=== PATIENT | male | born 1975 | race Caucasian/White ===

== ENCOUNTER 2024-08-16 14:03 | Inpatient (IN) | payer OTHER, SELFPAY ==
[2024-08-16] VITALS (13 sets, daily range): BP systolic 101–134; BP diastolic 56–81; PULSE 70–112; RESP 10–20; TEMP 35.8–38.8; O2SAT 93–98; BMI 26.6
--- NOTE | 2024-08-16 14:59 | DI.RAD.S_ITS ---
PROCEDURE: XR CHEST 1V INDICATIONS: suspected sepsis TECHNIQUE: One view of the chest was acquired. COMPARISON: None. FINDINGS: Surgical changes and devices: None. Lungs and pleura: Lungs are clear. No pleural effusions or pneumothorax. Mediastinum: Mediastinal contours appear normal. Heart size is normal. Bones and chest wall: No suspicious bony lesions. Overlying soft tissues appear unremarkable. IMPRESSION: No acute cardiopulmonary abnormality is seen. Dictated by: Vel Narayan M.D. on 08/16/2024 at 16:05 Approved by: Vel Narayan M.D. on 08/16/2024 at 16:06
--- NOTE | 2024-08-16 14:59 | EKG_ITS ---
[id number], [place] [address] Test Date: 2024-08-16 Pat Name: John Paul Baron Department: Room: Gender: Male [employer] General Manager: PORSHA : 1975 Requested By: Order Number: [id number] Reading MD: Young Miller MD Measurements Intervals [place] Rate: 80 P: 71 TX: 126 QRS: 21 QRSD: 90 T: 43 QT: 380 QTc: 438 Interpretive Statements Normal sinus rhythm with sinus arrhythmia Electronically Signed On 08-17-2024 8:45:37 PDT by Young Miller MD
--- NOTE | 2024-08-16 16:10 | PC.NURSE ---
Pt has redness to bilateral LE. Left lower leg is more red and edematous than the right.
[2024-08-16 16:14] LABS: INR 1.1 (0.9-1.3); Prothrombin Time 12.8 SECONDS (9.4-12.5)
[2024-08-16 16:17] LABS: PTT Partial Thromboplastin Tim 17 SECONDS (25.1-36.5)
[2024-08-16 16:21] LABS: Alanine Aminotransferase 20 IU/L (<50); Albumin 4.1 g/dL (3.5-5.0); Albumin Globulin Ratio 0.8 (1.0-2.8); Alkaline Phosphatase 103 U/L (38-126); Aspartate Aminotransferase 27 IU/L (17-59); BUN Creatinine Ratio 24.2 (6-22); Bilirubin Total 0.7 mg/dL (0.2-1.3); Blood Urea Nitrogen 29 mg/dL (9-20); Calcium 9.2 mg/dL (8.4-10.2); Carbon Dioxide 28 mmol/L (22-32); Chloride 94 mmol/L (98-107); Estimated Glomerular Filt Rate > 60 mL/min (>60); Glucose 103 mg/dL (70-99); HEMOLYSIS < 15 (0-50); Lactate (Lactic Acid) 1.8 mmol/L (0.7-2.1); Lipase 40 U/L (23-300); Potassium 3.2 mmol/L (3.4-5.1); Sodium 135 mmol/L (137-145); Total Protein 9.1 g/dL (6.3-8.2)
--- NOTE | 2024-08-16 16:21 | DI.US.S_ITS ---
PROCEDURE: US PERIPH VENOUS LOW EXTREM LT INDICATIONS: Left leg redness and swelling TECHNIQUE: Real-time imaging, as well as color and pulse Doppler interrogation, were performed of the lower extremity deep veins from the inguinal ligament to the popliteal fossa, with documentation of the visualized calf veins. COMPARISON: None. FINDINGS: The common femoral, femoral, popliteal, and the visualized calf veins are normally compressible, and free of intraluminal thrombus. Color and pulse Doppler demonstrate normal phasic intraluminal flow. There is normal augmentation response to distal compression maneuver. IMPRESSION: No findings of lower extremity deep venous thrombosis. Dictated by: Librado Rodriguez M.D. on 08/16/2024 at 16:48 Approved by: Librado Rodriguez M.D. on 08/16/2024 at 16:48
--- NOTE | 2024-08-16 16:23 | ED.SKABFB ---
HPI - Skin/Abscess/Foreign Bdy General Chief complaint: Skin/Abscess/Foreign Body Stated complaint: staph infection in Lt leg- pain Time Seen by Provider: 08/16/24 15:29 Source: patient Mode of arrival: Ambulatory Limitations: no limitations History of Present Illness HPI narrative: Patient here for left leg pain redness and swelling. Ongoing 5 days. History of cellulitis in the past. No history of blood clots in legs or lungs. Vital signs noted. Patient denies any injury she had of the skin. No chest pain or shortness of breath. Related Data Home Medications ?Medication ?Instructions ?Recorded ?Confirmed methadone 60 mg PO DAILY pain 08/16/24 08/17/24 Allergies Allergy/AdvReac Type Severity Reaction Status Date / Time No Known Drug Allergies Allergy Verified 08/16/24 14:54 Review of Systems Review of Systems Narrative: GENERAL: Negative chills, fatigue, malaise, fever, sweats. HEENT: Negative sinus pain, ear pain, sore throat RESPIRATORY: Negative dyspnea, cough CARDIOVASCULAR: Negative chest pain, palpitations GASTROINTESTINAL: Negative vomiting, nausea, abdominal pain : Negative dysuria, frequency, hematuria MUSCULOSKELETAL: Negative muscle or bony pain SKIN: Negative rash, skin lesions NEUROLOGIC: Negative weakness, numbness ROS Unobtainable: All systems reviewed & are unremarkable except as noted in HPI and below Patient History Social History household members: friend(s) Smoking Status: Current every day smoker Smoking Status: Current every day smoker Exam Narrative Exam Narrative: GENERAL: in no distress, not toxic not dyspneic HEAD: Normocephalic. EYES: Pupils equal round ENT: Mucous membranes moist. NECK: Trachea midline. CARDIOVASCULAR: Regular rate and rhythm RESPIRATORY: Clear to auscultation. Breath sounds equal bilaterally. No wheezes, rales, or rhonchi. GASTROINTESTINAL: Abdomen soft, non-tender EXTREMITIES: No gross deformities. Examination left lower extremity. Large left calf compared to the right. No crepitus. No pain out of portion exam. No signs of a compartment syndrome. Strong pedal pulse on the left brisk cap refills light touch intact to leg and toes. No red streaking. No palpable cords. Negative Homans test negative Ortiz test. Diffuse erythema circumferentially of the lower leg between the ankle and. Knee. BACK: No flank tenderness. NEURO: AOx4. Clear speech SKIN: Warm and dry PSYCH: Not anxious, is cooperative Initial Vital Signs Initial Vital Signs: Vital Signs Temperature 101.8 F H 08/16/24 14:53 Pulse Rate 112 H 08/16/24 14:53 Respiratory Rate 20 08/16/24 14:53 Blood Pressure 109/73 08/16/24 14:53 Pulse Oximetry 97 08/16/24 14:53 Oxygen Delivery Method Room Air 08/16/24 14:53 Course Orders Ordered: Discontinued Medications Acetaminophen (Acetaminophen 325 Mg Tablet) 650 mg PO Q6H PRN PRN Reason: Fever/Mild Pain (1-3) Docusate Sodium (Docusate 100 Mg Capsule) 100 mg PO BID [facility] Last Admin: 08/22/24 08:30 Dose: Not Given Documented By: Admin: 08/21/24 21:46 Dose: Not Given Documented By: Admin: 08/21/24 08:55 Dose: Not Given Documented By: Admin: 08/20/24 20:55 Dose: Not Given Documented By: Admin: 08/20/24 09:31 Dose: Not Given Documented By: Admin: 08/19/24 20:11 Dose: Not Given Documented By: Admin: 08/19/24 10:00 Dose: Not Given Documented By: Admin: 08/18/24 21:19 Dose: Not Given Documented By: Admin: 08/18/24 09:36 Dose: Not Given Documented By: Admin: 08/17/24 21:27 Dose: Not Given Documented By: Admin: 08/17/24 08:00 Dose: Not Given Documented By: Admin: 08/16/24 21:01 Dose: Not Given Documented By: TLS Furosemide (Furosemide 40 Mg/4 Ml Vial) 40 mg IV NOW ONE Stop: 08/19/24 08:55 Last Admin: 08/19/24 10:40 Dose: 40 mg Documented By: LIZZY Heparin Sodium (Porcine) (Heparin 5,000 Unit/Ml Vial) 5,000 unit SUBCUT BID [facility] Last Admin: 08/22/24 08:42 Dose: 5,000 unit Documented By: Admin: 08/21/24 20:20 Dose: 5,000 unit Documented By: Admin: 08/21/24 08:50 Dose: 5,000 unit Documented By: Admin: 08/20/24 20:51 Dose: 5,000 unit Documented By: Admin: 08/20/24 09:31 Dose: 5,000 unit Documented By: Admin: 08/19/24 20:11 Dose: 5,000 unit Documented By: Admin: 08/19/24 10:00 Dose: 5,000 unit Documented By: Admin: 08/18/24 21:19 Dose: 5,000 unit Documented By: Admin: 08/18/24 09:35 Dose: 5,000 unit Documented By: Admin: 08/17/24 21:27 Dose: 5,000 unit Documented By: Admin: 08/17/24 07:59 Dose: 5,000 unit Documented By: Admin: 08/16/24 21:01 Dose: 5,000 unit Documented By: PRATIBHA Heparin Sodium (Porcine) (Heparin Flush (Cl/Picc/Mid-Line) 50 Unit/5 Ml Syringe) 50 unit IV BID [facility] Last Admin: 08/22/24 08:42 Dose: 50 unit Documented By: Admin: 08/21/24 21:53 Dose: Not Given Documented By: Admin: 08/21/24 08:50 Dose: 50 unit Documented By: Admin: 08/20/24 23:47 Dose: 50 unit Documented By: VERONICA Heparin Sodium (Porcine) (Heparin Flush (Cl/Picc/Mid-Line) 50 Unit/5 Ml Syringe) 50 unit IV PRN PRN PRN Reason: Flush Hydromorphone HCl (Hydromorphone 2 Mg Tablet) 4 mg PO Q4HR PRN PRN Reason: Pain, Severe (7-10) Sodium Chloride (Normal Saline 0.9%) 1,000 mls @ 1,000 mls/hr IV BOLUS ONE Stop: 08/16/24 15:58 Last Infusion: 08/16/24 17:52 Dose: Infused Documented By: Admin: 08/16/24 16:39 Dose: 1,000 mls/hr Documented By: JOSUÉ Doxycycline Hyclate 100 mg/ (Sodium Chloride) 100 mls @ 100 mls/hr IV NOW ONE Stop: 08/16/24 16:22 Last Infusion: 08/16/24 17:52 Dose: Infused Documented By: Admin: 08/16/24 16:38 Dose: 100 mls/hr Documented By: SB Ceftriaxone Sodium 2,000 mg/ (Sodium Chloride) 100 mls @ 200 mls/hr IV NOW ONE Stop: 08/16/24 17:57 Last Infusion: 08/16/24 19:13 Dose: Infused Documented By: Admin: 08/16/24 18:19 Dose: 200 mls/hr Documented By: JR Vancomycin HCl (Vancomycin) 1,250 mg in 250 mls @ 250 mls/hr IV Q12H [facility] Last Infusion: 08/18/24 09:35 Dose: Infused Documented By: Admin: 08/18/24 08:08 Dose: 250 mls/hr Documented By: Infusion: 08/17/24 19:30 Dose: Infused Documented By: Admin: 08/17/24 18:30 Dose: 250 mls/hr Documented By: Infusion: 08/17/24 09:22 Dose: Infused Documented By: Admin: 08/17/24 07:59 Dose: 250 mls/hr Documented By: BT Vancomycin HCl/Dextrose (Vancomycin) 2,000 mg in 400 mls @ 200 mls/hr IV NOW ONE Stop: 08/16/24 20:59 Last Infusion: 08/16/24 23:10 Dose: Infused Documented By: Admin: 08/16/24 21:02 Dose: 200 mls/hr Documented By: PRATIBHA Vancomycin HCl (Vancomycin) 1,250 mg in 250 mls @ 250 mls/hr IV Q8H [facility] Last Infusion: 08/19/24 19:00 Dose: Infused Documented By: Admin: 08/19/24 07:00 Dose: Not Given Documented By: Infusion: 08/18/24 22:00 Dose: 0 mls/hr Documented By: Admin: 08/18/24 21:55 Dose: 250 mls/hr Documented By: Infusion: 08/18/24 16:15 Dose: Infused Documented By: Admin: 08/18/24 14:28 Dose: 250 mls/hr Documented By: LIZZY Vancomycin HCl (Vancomycin) 1,250 mg in 250 mls @ 250 mls/hr IV Q8H [facility] Last Infusion: 08/22/24 13:17 Dose: Infused Documented By: Admin: 08/22/24 11:41 Dose: 250 mls/hr Documented By: Infusion: 08/22/24 05:46 Dose: Infused Documented By: Admin: 08/22/24 03:14 Dose: 250 mls/hr Documented By: Infusion: 08/22/24 03:14 Dose: Infused Documented By: Admin: 08/21/24 20:07 Dose: 250 mls/hr Documented By: Infusion: 08/21/24 13:44 Dose: Infused Documented By: Admin: 08/21/24 12:19 Dose: 250 mls/hr Documented By: Infusion: 08/21/24 03:57 Dose: Infused Documented By: Admin: 08/21/24 02:46 Dose: 250 mls/hr Documented By: Infusion: 08/20/24 20:08 Dose: Infused Documented By: Admin: 08/20/24 18:52 Dose: 250 mls/hr Documented By: Infusion: 08/20/24 12:50 Dose: Infused Documented By: Admin: 08/20/24 11:14 Dose: 250 mls/hr Documented By: Infusion: 08/20/24 03:56 Dose: Infused Documented By: Admin: 08/20/24 02:55 Dose: 250 mls/hr Documented By: Infusion: 08/19/24 21:00 Dose: Infused Documented By: Admin: 08/19/24 20:00 Dose: 250 mls/hr Documented By: Infusion: 08/19/24 13:00 Dose: Infused Documented By: Admin: 08/19/24 10:46 Dose: 250 mls/hr Documented By: EJ Ceftriaxone Sodium 2,000 mg/ (Sodium Chloride) 100 mls @ 200 mls/hr IV Q24H [facility] Ceftriaxone Sodium 2,000 mg/ (Sodium Chloride) 100 mls @ 200 mls/hr IV Q24H [facility] Last Infusion: 08/22/24 15:00 Dose: Infused Documented By: Admin: 08/22/24 14:07 Dose: 200 mls/hr Documented By: Infusion: 08/21/24 14:53 Dose: Infused Documented By: Admin: 08/21/24 13:50 Dose: 200 mls/hr Documented By: Infusion: 08/20/24 13:35 Dose: Infused Documented By: Admin: 08/20/24 13:02 Dose: 200 mls/hr Documented By: AURELIA Ibuprofen (Ibuprofen 400 Mg Tablet) 800 mg PO NOW ONE Stop: 08/16/24 16:24 Last Admin: 08/16/24 16:38 Dose: 800 mg Documented By: SB Magnesium Hydroxide (Magnesium Hydroxide 30 Ml Udc) 30 ml PO DAILY PRN PRN Reason: Constipation Methadone HCl (Methadone Intensol 10 Mg/Ml Oral.Conc) 60 mg PO DAILY [facility] Last Admin: 08/18/24 09:00 Dose: Not Given Documented By: Admin: 08/17/24 09:48 Dose: 60 mg Documented By: RYLAN Methadone HCl (Methadone Intensol 10 Mg/Ml Oral.Conc) 70 mg PO DAILY [facility] Last Admin: 08/19/24 10:20 Dose: 70 mg Documented By: Admin: 08/18/24 09:30 Dose: 70 mg Documented By: LIZZY Methadone HCl (Methadone Intensol 10 Mg/Ml Oral.Conc) 80 mg PO DAILY [facility] Last Admin: 08/20/24 09:49 Dose: 80 mg Documented By: AURELIA Methadone HCl (Methadone Intensol 10 Mg/Ml Oral.Conc) 90 mg PO DAILY [facility] Last Admin: 08/22/24 11:41 Dose: 90 mg Documented By: Admin: 08/21/24 09:19 Dose: 80 mg Documented By: LDV Methadone HCl (Methadone Intensol 10 Mg/Ml Oral.Conc) 10 mg PO NOW ONE Stop: 08/21/24 16:01 Last Admin: 08/21/24 15:48 Dose: 10 mg Documented By: LDV Naloxone HCl (Naloxone 0.4 Mg/Ml Vial) 0.2 mg IV Q2MIN PRN PRN Reason: Opiate Reversal Ondansetron HCl (Ondansetron 4 Mg/2 Ml Inj) 4 mg IV NOW PRN PRN Reason: Nausea And Vomiting Ondansetron HCl (Ondansetron 4 Mg Odt) 4 mg PO NOW PRN PRN Reason: Nausea And Vomiting Oxycodone HCl (Oxycodone Ir 5 Mg Tablet) 5 mg PO Q3H PRN PRN Reason: Pain, Moderate (4-6) Potassium Chloride (Potassium Chloride 20 Meq Tab) 40 meq PO NOW ONE Stop: 08/17/24 07:31 Last Admin: 08/17/24 07:59 Dose: 40 meq Documented By: BT Sennosides (Sennosides 8.6 Mg Tablet) 17.2 mg PO BEDTIME [facility] Last Admin: 08/21/24 21:46 Dose: Not Given Documented By: Admin: 08/20/24 20:56 Dose: Not Given Documented By: Admin: 08/19/24 20:11 Dose: Not Given Documented By: Admin: 08/18/24 21:32 Dose: Not Given Documented By: Admin: 08/17/24 21:27 Dose: Not Given Documented By: Admin: 08/16/24 21:01 Dose: Not Given Documented By: TLS Sodium Chloride (Sodium Chloride 0.9% Flush) 10 ml IV BID [facility] Last Admin: 08/22/24 08:42 Dose: 10 ml Documented By: Admin: 08/21/24 20:20 Dose: 10 ml Documented By: Admin: 08/21/24 08:51 Dose: 10 ml Documented By: Admin: 08/20/24 20:51 Dose: 10 ml Documented By: Admin: 08/20/24 09:31 Dose: 10 ml Documented By: Admin: 08/19/24 20:12 Dose: 10 ml Documented By: Admin: 08/19/24 10:46 Dose: 10 ml Documented By: Admin: 08/18/24 21:19 Dose: 10 ml Documented By: Admin: 08/18/24 09:35 Dose: 10 ml Documented By: LIZZY Vancomycin HCl (Vancomycin Per Pharmacy) 1 request MIS NOW PRN PRN Reason: Cellulitis Vancomycin HCl (Vancomycin Trough) 1 request [facility] [place] [facility] Stop: 08/18/24 06:31 Last Admin: 08/18/24 07:30 Dose: 1 request Documented By: LIZZY Vancomycin HCl (Vancomycin Trough) 1 request MIS 1030 [facility] Stop: 08/19/24 13:31 Vancomycin HCl (Vancomycin Trough) 1 request [facility] [place] [facility] Stop: 08/20/24 10:31 Last Admin: 08/20/24 11:15 Dose: 1 request Documented By: AURELIA Vancomycin HCl (Vancomycin Trough) 1 request MISC NOW ONE Stop: 08/22/24 10:31 Last Admin: 08/22/24 11:40 Dose: Not Given Documented By: LDV Vital Signs Vital signs: Vital Signs - 8 hr 08/16/24 14:53 08/16/24 15:03 08/16/24 15:30 Temperature 101.8 F H Pulse Rate 112 H 97 H 82 Respiratory Rate 20 13 Blood Pressure 109/73 134/81 112/77 Pulse Oximetry 97 98 98 Oxygen Delivery Method Room Air 08/16/24 16:00 08/16/24 16:30 Temperature Pulse Rate 79 79 Respiratory Rate 13 16 Blood Pressure 104/78 108/71 Pulse Oximetry 97 97 Oxygen Delivery Method Room Air MDM - Skin/Abscess/Foreign Bdy Lab Data 08/20/24 05:18 08/20/24 05:18 Labs: Lab Results 08/16/24 08/16/24 Range/Units 15:50 16:15 WBC 10.8 (4.5-11.0) X10^3/uL RBC 4.67 (4.5-5.9) X10^6/uL Hgb 13.0 L (13.5-17.5) g/dL Hct 38.5 L (41-53) % MCV 82.4 (80-100) fL MCH 27.9 (26-34) PG MCHC 33.9 (30-36) % RDW 14.9 H (11.6-14.8) % Plt Count 233 (150-400) X10^3/uL Neut % (Auto) 80.7 H (50-75) % Lymph % (Auto) 9.0 L (25-40) % Cache % (Auto) 9.0 (3-14) % Eos % (Auto) 0.6 L (2-4) % Baso % (Auto) 0.7 (0-2) % Neut # (Auto) 8700 H (0070-7751) /uL Lymph # (Auto) 1000 L (2589-7860) /uL Cache # (Auto) 1000 H (0-900) /uL Eos # (Auto) 100 (0-450) /uL Baso # (Auto) 100 (0-100) /uL PT 12.8 H (9.4-12.5) SECONDS INR 1.1 (0.9-1.3) APTT 17 L (25.1-36.5) SECONDS Sodium 135 L (137-145) mmol/L Potassium 3.2 L (3.4-5.1) mmol/L Chloride 94 L (98-107) mmol/L Carbon Dioxide 28 (22-32) mmol/L BUN 29 H (9-20) mg/dL Creatinine 1.20 (0.66-1.25) mg/dL Estimated GFR > 60 (>60) mL/min BUN/Creatinine Ratio 24.2 H (6-22) Glucose 103 H (70-99) mg/dL Lactate 1.8 (0.7-2.1) mmol/L Calcium 9.2 (8.4-10.2) mg/dL Total Bilirubin 0.7 (0.2-1.3) mg/dL AST 27 (17-59) IU/L ALT 20 (<50) IU/L Alkaline Phosphatase 103 (38-126) U/L Total Protein 9.1 H (6.3-8.2) g/dL Albumin 4.1 (3.5-5.0) g/dL Globulin 5.0 H (1.7-4.1) g/dL Albumin/Globulin Ratio 0.8 L (1.0-2.8) Lipase 40 (23-300) U/L Procalcitonin 0.144 (<0.5) ng/mL Imaging Data Chest x-ray: Radiologist's Impression: [place] [address] XRay Report Signed Patient: John Paul Baron MR#: [id number] : 1975 Acct:[id number] Age/Sex: 49 / M Date of Service: 08/16/24 Loc: ED Accession Number: [id number] Procedure: XR chest 1V Ordering Provider: Jean Paul Malave MD PROCEDURE: XR CHEST 1V INDICATIONS: suspected sepsis TECHNIQUE: One view of the chest was acquired. COMPARISON: None. FINDINGS: Surgical changes and devices: None. Lungs and pleura: Lungs are clear. No pleural effusions or pneumothorax. Mediastinum: Mediastinal contours appear normal. Heart size is normal. Bones and chest wall: No suspicious bony lesions. Overlying soft tissues appear unremarkable. IMPRESSION: No acute cardiopulmonary abnormality is seen. Dictated by: Vel Narayan M.D. on 08/16/2024 at 16:05 Approved by: Vel Narayan M.D. on 08/16/2024 at 16:06 US - DVT: Radiologist's Impression: [address] [address] Ultrasound Report Signed Patient: John Paul Baron MR#: [id number] : 1975 Acct:[id number] Age/Sex: 49 / M Date of Service: 08/16/24 Loc: ED Accession Number: [id number] Procedure: US perip venous low extrem lt Ordering Provider: Jean Paul Malave MD PROCEDURE: US PERIP VENOUS LOW EXTREM LT INDICATIONS: Left leg redness and swelling TECHNIQUE: Real-time imaging, as well as color and pulse Doppler interrogation, were performed of the lower extremity deep veins from the inguinal ligament to the popliteal fossa, with documentation of the visualized calf veins. COMPARISON: None. FINDINGS: The common femoral, femoral, popliteal, and the visualized calf veins are normally compressible, and free of intraluminal thrombus. Color and pulse Doppler demonstrate normal phasic intraluminal flow. There is normal augmentation response to distal compression maneuver. IMPRESSION: No findings of lower extremity deep venous thrombosis. Dictated by: Librado Rodriguez M.D. on 08/16/2024 at 16:48 Approved by: Librado Rodriguez M.D. on 08/16/2024 at 16:[address] [facility] Narrative Medical decision making narrative: Patient here for left leg pain redness and swelling. Ongoing 5 days. History of cellulitis in the past. No history of blood clots in legs or lungs. Vital signs noted. Patient denies any injury she had of the skin. No chest pain or shortness of breath. After history and exam, CBC CMP procalcitonin lactic acid blood culture doxycycline normal saline ibuprofen ultrasound left leg, admit [facility] Medical records reviewed: No recent visit for this complaint Differential considered: Includes but not limited to cellulitis sepsis Lab Test results independently reviewed as above. Pertinent findings: INR 1.1 sodium 135 potassium 3.2 BUN 29 glucose 103 creatinine 1.2, WBC 10.8 hemoglobin 13.0 lactic acid 1.8 procalcitonin 0.144 Independently reviewed EKG sinus rhythm rate [address] elevation or depression normal EKG Imaging studies independently reviewed: Chest x-ray no acute finding ultrasound left leg no acute finding Consultations: Spoke with hospitalist, dr laurent, he will admit patient Re-evaluations: Updated patient results. Agrees for admission. Will need IV antibiotics. Pain is controlled. Discussion: Appropriate for admission. Patient will require IV antibiotics. Significant enlargement erythema edema of the left leg. Would benefit for IV antibiotics. Diagnosis: Left leg cellulitis Discharge Plan Departure Patient Disposition: Admitted as Observation Clinical Impression: Cellulitis Qualifiers: Site of cellulitis: extremity Site of cellulitis of extremity: lower extremity Laterality: left Qualified Code(s): L03.116 - Cellulitis of left lower limb Admit Date/Time: 08/16/24 17:40 Admit Provider: Livan Laurent
[2024-08-16 16:25] LABS: Add Manual Diff / Slide Review NO; Basophils Absolute Auto 100 /uL (0-100); Basophils Percent Auto 0.7 % (0-2); Eosinophils Absolute Auto 100 /uL (0-450); Eosinophils Percent Auto 0.6 % (2-4); Hematocrit 38.5 % (41-53); Lymphocytes Absolute Auto 1000 /uL (1100-4500); Mean Corpuscular HGB Conc 33.9 % (30-36); Mean Corpuscular Hemoglobin 27.9 PG (26-34); Mean Corpuscular Volume 82.4 fL (80-100); Monocytes Absolute Auto 1000 /uL (0-900); Neutrophils Absolute Auto 8700 /uL (1500-7000); Neutrophils Percent Auto 80.7 % (50-75); Platelet Count 233 X10^3/uL (150-400); Red Blood Cell Count 4.67 X10^6/uL (4.5-5.9); Red Cell Distribution Width 14.9 % (11.6-14.8); White Blood Cell Count 10.8 X10^3/uL (4.5-11.0)
[2024-08-16 16:38] LABS: Procalcitonin 0.144 ng/mL (<0.5)
[2024-08-16] MEDS: DOXYCYCLINE 100 MG in SODIUM CHLORIDE 0.9% 100 ML IV (16:38)
[2024-08-16] MEDS: IBUPROFEN 400 MG TABLET 800 MG PO (16:38)
[2024-08-16] MEDS: SODIUM CHLORIDE 0.9% 1,000 ML 1000 ML IV (16:39)
--- NOTE | 2024-08-16 17:34 | PM.HP.1 ---
History of Present Illness History of Present Illness Date Patient Seen: 08/16/24 Chief complaint: staph infection in Lt leg- pain Narrative: Chief complaint: Fevers chills fatigue malaise diminished appetite redness and swelling of left lower leg secondary to cellulitis History of present illness: 08/16: 49-year-old male 2 weeks ago got sores on his both hands after cleaning out friend's car who had been living in it he did not seek treatment for infections of his hands. About 5 days ago he started developing redness and swelling of his left lower leg with a fever or chills malaise fatigue diminished appetite. He came to the emergency department 08/16 for evaluation Findings in the emergency department significant for white blood cell count of 10.8 with 81% neutrophils sodium 135 potassium 3.2 BUN 29 creatinine 1.2 procalcitonin 0.144 Doppler ultrasound negative for DVT of the affected extremity. He has a remote but longstanding an extensive past history of heroin IV use and previous skin infections He is on maintenance methadone He works as a webb Medications, past surgical history, past medical history, family history, social history see bottom of the document: Review of systems: No weight loss or weight gain No headache diplopia blurred vision No chest pain palpitations wheezing or shortness a breath No nausea vomiting diarrhea constipation No urinary symptoms No paresthesia or paresis Physical exam: Disheveled male but very pleasant and ill appearing HEENT unremarkable patient is edentulous no scleral hemorrhages and no [place] spots Neck no carotid bruits no thyromegaly Heart rate and rhythm regular no murmurs Lungs clear from apices to bases Abdomen is nondistended bowel sounds present nontender no splenomegaly Extremities have extensive scarring of the skin on distal portions of all 4 extremities patient attributes this to IV heroin use remotely No or Osler's nodes Janeway spots or splinter hemorrhages There is peeling and recent healed wounds of both hands bilaterally Right lower extremity nothing acute left lower extremity has significant swelling erythema and heat Left inguinal lymph nodes are palpable and enlarged and tender He is alert and oriented cranial nerves intact neurologic exam is nonfocal Objective laboratory and imaging data please see bottom of the document: Assessment and plan: Cellulitis of left lower extremity likely entry point of bilateral hands. Patient has a history of IV drug use and previous infections and may have impaired anamnestic B-cell and T-cell function no signs of endocarditis Blood cultures pending begin with intravenous vancomycin and high-dose ceftriaxone Adequate analgesia DVT prophylaxis Subcutaneous heparin Code status: Full code [facility] Social History Smoking Status: Current every day smoker Meds Home Medications and Allergies Home Medications ?Medication ?Instructions ?Recorded ?Confirmed ?Type WARFARIN SODIUM (COUMADIN) 12.5 Q DAY ##0 10/13/09 History Allergies Allergy/AdvReac Type Severity Reaction Status Date / Time No Known Drug Allergies Allergy Verified 08/16/24 14:54 Exam Vital Signs (past 8 hours): - 08/16/24 14:53 08/16/24 15:03 08/16/24 15:30 Temperature 101.8 F H Pulse Rate 112 H 97 H 82 Respiratory Rate 20 13 Blood Pressure 109/73 134/81 112/77 Pulse Oximetry 97 98 98 Oxygen Delivery Method Room Air 08/16/24 16:00 08/16/24 16:30 Temperature Pulse Rate 79 79 Respiratory Rate 13 16 Blood Pressure 104/78 108/71 Pulse Oximetry 97 97 Oxygen Delivery Method Room Air Oxygen Delivery Method Room Air Objective Labs 08/16/24 16:15 08/16/24 15:50 Labs: Laboratory Results - last 24 hr 08/16/24 08/16/24 15:50 16:15 WBC 10.8 RBC 4.67 Hgb 13.0 L Hct 38.5 L MCV 82.4 MCH 27.9 MCHC 33.9 RDW 14.9 H Plt Count 233 Neut % (Auto) 80.7 H Lymph % (Auto) 9.0 L [place] % (Auto) 9.0 Eos % (Auto) 0.6 L Baso % (Auto) 0.7 Neut # (Auto) 8700 H Lymph # (Auto) 1000 L [place] # (Auto) 1000 H Eos # (Auto) 100 Baso # (Auto) 100 PT 12.8 H INR 1.1 APTT 17 L Sodium 135 L Potassium 3.2 L Chloride 94 L Carbon Dioxide 28 BUN 29 H Creatinine 1.20 Estimated GFR > 60 BUN/Creatinine Ratio 24.2 H Glucose 103 H Lactate 1.8 Calcium 9.2 Total Bilirubin 0.7 AST 27 ALT 20 Alkaline Phosphatase 103 Total Protein 9.1 H Albumin 4.1 Globulin 5.0 H Albumin/Globulin Ratio 0.8 L Lipase 40 Procalcitonin 0.144 Assessment & Plan Time-Based Coding :: 55 minutes spent with patient and on the chart (including review of chart, obtaining history, exam, reviewing outside data, placing orders, documenting exam and treatment plan, and counseling patient). Quality MIPS - Meds 'Current medications' to include all prescriptions, [id number] products, herbals, cannabis/cannabidiol products, and vitamin/mineral/dietary (nutritional) supplements. I have utilized all available resources to obtain, update, or review the patient?s current medications. [If Yes, STOP here]: Yes MIPS - DC The patient has a history of heart transplant or Left Ventricular Assist Device (LVAD). If yes, STOP here.: Yes
[2024-08-16] MEDS: cefTRIAXone 2,000 MG in SODIUM CHLORIDE 0.9% 100 ML 200 MG IV (18:19)
[2024-08-16] MEDS: HEPARIN 5,000 UNIT/ML VIAL 5000 UNIT SUBCUT (21:01)
[2024-08-16] MEDS: VANCOMYCIN 2,000 MG/400 ML PIGGYBACK 200 MG IV (21:02)
--- NOTE | 2024-08-16 23:14 | PC.WOUNDPHOT ---
right medial dorsal foot right anterior thigh right anterior and lateral thigh right forearm right forearm near elbow LLE LLE LLE LLE (closest to camera) RLE in forground L hand
[2024-08-17 03:46] VITALS: BP 101/66; PULSE 66; RESP 16; TEMP 36.2; O2SAT 98
[2024-08-17 05:05] LABS: Add Manual Diff / Slide Review NO; Basophils Absolute Auto 0 /uL (0-100); Basophils Percent Auto 0.4 % (0-2); Eosinophils Absolute Auto 200 /uL (0-450); Eosinophils Percent Auto 1.8 % (2-4); Hematocrit 37.1 % (41-53); Hemoglobin 12.4 g/dL (13.5-17.5); Lymphocytes Absolute Auto 900 /uL (1100-4500); Lymphocytes Percent Auto 9.5 % (25-40); Mean Corpuscular HGB Conc 33.4 % (30-36); Mean Corpuscular Hemoglobin 27.3 PG (26-34); Mean Corpuscular Volume 81.6 fL (80-100); Monocytes Absolute Auto 800 /uL (0-900); Monocytes Percent Auto 8.6 % (3-14); Neutrophils Absolute Auto 7700 /uL (1500-7000); Neutrophils Percent Auto 79.7 % (50-75); Platelet Count 206 X10^3/uL (150-400); Red Blood Cell Count 4.54 X10^6/uL (4.5-5.9); White Blood Cell Count 9.7 X10^3/uL (4.5-11.0)
[2024-08-17 05:20] LABS: Alanine Aminotransferase 14 IU/L (<50); Albumin 3.1 g/dL (3.5-5.0); Albumin Globulin Ratio 0.8 (1.0-2.8); Alkaline Phosphatase 82 U/L (38-126); Aspartate Aminotransferase 19 IU/L (17-59); BUN Creatinine Ratio 29.9 (6-22); Bilirubin Total 0.4 mg/dL (0.2-1.3); Blood Urea Nitrogen 20 mg/dL (9-20); Calcium 8.3 mg/dL (8.4-10.2); Carbon Dioxide 28 mmol/L (22-32); Chloride 101 mmol/L (98-107); Estimated Glomerular Filt Rate > 60 mL/min (>60); Globulin 3.8 g/dL (1.7-4.1); Glucose 102 mg/dL (70-99); HEMOLYSIS < 15 (0-50); Potassium 3.5 mmol/L (3.4-5.1); Sodium 135 mmol/L (137-145); Total Protein 6.9 g/dL (6.3-8.2)
--- NOTE | 2024-08-17 06:51 | PC.NURSE ---
Talked to intake nurse at [facility] in [facility] to verify patients methadone dose. He started at 50 mg on August 16, was supposed to increase to 60 mg on August 17, and then increase to 70 mg on August 18. The nurse would not fax this order to [facility]- stated the doctor could call and confirm if needed. Will notify day shift MD.
[2024-08-17] MEDS: HEPARIN 5,000 UNIT/ML VIAL 5000 UNIT SUBCUT ×2 (07:59→21:27)
[2024-08-17] MEDS: POTASSIUM CHLORIDE 20 MEQ TAB 40 MEQ PO (07:59)
[2024-08-17] MEDS: VANCOMYCIN 1,250 MG/250 ML PIGGYBACK 250 MG IV ×2 (07:59→18:30)
[2024-08-17 08:00] VITALS: BP 105/56; PULSE 74; RESP 16; TEMP 36.1; O2SAT 96
[2024-08-17] MEDS: METHADONE INTENSOL 10 MG/ML ORAL.CONC 60 MG PO (09:48)
[2024-08-17 12:07] VITALS: BP 103/61; PULSE 71; RESP 15; TEMP 36.2; O2SAT 98
--- NOTE | 2024-08-17 14:48 | CM.DANOTE ---
DCP Assessment note pt is a 49yo M admitted with cellulitis. getting iv abx now. PCP none at this time. Payer [employer] and medicaid TELEMARKETER reviewed EMR. per chart, lives with roommates in [place]. previously unhoused. distant hx of IV heroin use. currently on methadone. no PCP, TELEMARKETER gave PCP resources. will alert TCM group at dc of pt calling in. per pt, may need a bus pass to return home. may have a ride but likely need bus pass. P: anticipate home tomorrow/when medically stable. will work to establish PCP. transport via bus pass. CM team will continue to follow as needed for DCP coordination YELITZA Kelly Discharge Planning/Care Management CM Discharge Assessment Start: 08/16/24 18:27 Freq: Status: Active Protocol: Document 08/17/24 14:46 SL (Rec: 08/17/24 14:47 SL Desktop) Discharge Planning Assessment Assigned Discharge YELITZA Ulloa Senior Clinical Sas Programmer Advance Directives? No History Provided By Patient Prior Living House Arrangements Household Members friend(s) Type of Public Transportation transporation used prior to admit Independent with ADL Yes 's Is patient alert and Yes oriented? Discharge Plan Home Transportation bus vs friend to transport Arrangement Review Status In Process Please Provide Date 08/17/24 Initial DC Assessment Was Performed Next Review Type Continued Stay Review
--- NOTE | 2024-08-17 15:22 | P.PN_ITS ---
Subjective Subjective Interval history: 49 year old male admitted with left leg cellulitis. Appears to be improving today. Exam Vital Signs (past 8 hours): - 08/17/24 08:00 08/17/24 12:07 Temperature 96.9 F L 97.1 F L Pulse Rate 74 71 Respiratory Rate 16 15 Blood Pressure 105/56 L 103/61 Pulse Oximetry 96 98 Oxygen Flow Rate 0 0 Oxygen Delivery Method Room Air Oxygen Flow Rate 0 Narrative Exam Narrative: Disheveled male but very pleasant, no acute distress. Heart rate and rhythm regular no murmurs Lungs CTA b/l Abdomen is S NT ND Extremities have extensive scarring of the skin on distal portions of all 4 extremities patient attributes this to IV heroin use remotely There is peeling and recent healed wounds of both hands bilaterally, also a healing L hallux wound without erythema. Right lower extremity nothing acute left lower extremity has significant swelling erythema and heat He is alert and oriented cranial nerves intact neurologic exam is nonfocal Objective Labs 08/17/24 04:29 08/17/24 04:29 Labs: Laboratory Results - last 24 hr 08/16/24 08/16/24 08/17/24 15:50 16:15 04:29 WBC 10.8 9.7 RBC 4.67 4.54 Hgb 13.0 L 12.4 L Hct 38.5 L 37.1 L MCV 82.4 81.6 MCH 27.9 27.3 MCHC 33.9 33.4 RDW 14.9 H 15.0 H Plt Count 233 206 Neut % (Auto) 80.7 H 79.7 H Lymph % (Auto) 9.0 L 9.5 L [place] % (Auto) 9.0 8.6 Eos % (Auto) 0.6 L 1.8 L Baso % (Auto) 0.7 0.4 Neut # (Auto) 8700 H 7700 H Lymph # (Auto) 1000 L 900 L [place] # (Auto) 1000 H 800 Eos # (Auto) 100 200 Baso # (Auto) 100 0 PT 12.8 H INR 1.1 APTT 17 L Sodium 135 L 135 L Potassium 3.2 L 3.5 Chloride 94 L 101 Carbon Dioxide 28 28 BUN 29 H 20 Creatinine 1.20 0.67 Estimated GFR > 60 > 60 BUN/Creatinine Ratio 24.2 H 29.9 H Glucose 103 H 102 H Lactate 1.8 Calcium 9.2 8.3 L Total Bilirubin 0.7 0.4 AST 27 19 ALT 20 14 Alkaline Phosphatase 103 82 Total Protein 9.1 H 6.9 Albumin 4.1 3.1 L Globulin 5.0 H 3.8 Albumin/Globulin Ratio 0.8 L 0.8 L Lipase 40 Procalcitonin 0.144 PFSH Social History household members: friend(s) Smoking Status: Current every day smoker Assessment & Plan Assessment & Plan narrative: Assessment and plan: Cellulitis of left lower extremity * Blood cultures pending. Continue intravenous vancomycin and high-dose ceftriaxone today given clinical improvement thus far. * Adequate analgesia * No leukocytosis today, stable chemistries. Opiate use disorder on methadone - supposed to increase to 60 mg methadone today, then 70 mg next. Increased methadone to 60 mg daily, - continue other opiates as needed for pain control DVT prophylaxis * Subcutaneous heparin Code status: * Full code Time-Based Coding :: [TOTAL MINUTES] spent with patient and on the chart (including review of chart, obtaining history, exam, reviewing outside data, placing orders, documenting exam and treatment plan, and counseling patient) on [DATE]. Quality VTE Deep Vein Thrombosis/Pulmonary Embolism Present on Admission: No
[2024-08-17 20:25] VITALS: BP 110/61; PULSE 76; RESP 16; TEMP 36.3; O2SAT 92
[2024-08-18 04:44] VITALS: BP 102/60; PULSE 80; RESP 16; O2SAT 96
[2024-08-18 06:42] LABS: Add Manual Diff / Slide Review NO; Basophils Absolute Auto 100 /uL (0-100); Basophils Percent Auto 0.6 % (0-2); Eosinophils Absolute Auto 200 /uL (0-450); Eosinophils Percent Auto 2.1 % (2-4); Hematocrit 35.6 % (41-53); Hemoglobin 11.8 g/dL (13.5-17.5); Lymphocytes Absolute Auto 1200 /uL (1100-4500); Lymphocytes Percent Auto 13.8 % (25-40); Mean Corpuscular HGB Conc 33.2 % (30-36); Mean Corpuscular Hemoglobin 27.2 PG (26-34); Mean Corpuscular Volume 82.1 fL (80-100); Monocytes Absolute Auto 700 /uL (0-900); Monocytes Percent Auto 7.5 % (3-14); Neutrophils Absolute Auto 6800 /uL (1500-7000); Platelet Count 219 X10^3/uL (150-400); Red Blood Cell Count 4.33 X10^6/uL (4.5-5.9); Red Cell Distribution Width 15.2 % (11.6-14.8); White Blood Cell Count 8.9 X10^3/uL (4.5-11.0)
[2024-08-18 06:50] LABS: Alanine Aminotransferase 14 IU/L (<50); Albumin 3.1 g/dL (3.5-5.0); Albumin Globulin Ratio 0.8 (1.0-2.8); Alkaline Phosphatase 77 U/L (38-126); Aspartate Aminotransferase 18 IU/L (17-59); BUN Creatinine Ratio 21.8 (6-22); Bilirubin Total 0.4 mg/dL (0.2-1.3); Blood Urea Nitrogen 12 mg/dL (9-20); Calcium 8.3 mg/dL (8.4-10.2); Carbon Dioxide 28 mmol/L (22-32); Chloride 103 mmol/L (98-107); Estimated Glomerular Filt Rate > 60 mL/min (>60); Globulin 3.9 g/dL (1.7-4.1); Glucose 105 mg/dL (70-99); HEMOLYSIS < 15 (0-50); Potassium 3.6 mmol/L (3.4-5.1); Sodium 135 mmol/L (137-145)
[2024-08-18] MEDS: VANCOMYCIN TROUGH 1 REQUEST MISC (07:30)
[2024-08-18 07:31] LABS: Vancomycin Trough 9.3 ug/mL (10-20)
[2024-08-18 08:00] VITALS: BP 135/82; PULSE 81; RESP 16; TEMP 36.6; O2SAT 95
[2024-08-18] MEDS: VANCOMYCIN 1,250 MG/250 ML PIGGYBACK 250 MG IV ×3 (08:08→21:55)
[2024-08-18] MEDS: METHADONE INTENSOL 10 MG/ML ORAL.CONC 70 MG PO (09:30)
[2024-08-18] MEDS: SODIUM CHLORIDE 0.9% FLUSH 10 ML IV ×2 (09:35→21:19)
[2024-08-18] MEDS: HEPARIN 5,000 UNIT/ML VIAL 5000 UNIT SUBCUT ×2 (09:35→21:19)
--- NOTE | 2024-08-18 12:08 | P.PN_ITS ---
Subjective Subjective Interval history: 49 year old male admitted with left leg cellulitis. Stable appearance today with continued LLE pain with ambulation. Exam Vital Signs (past 8 hours): - 08/18/24 04:44 08/18/24 08:00 Temperature 97.9 F Pulse Rate 80 81 Respiratory Rate 16 16 Blood Pressure 102/60 135/82 Pulse Oximetry 96 95 Oxygen Flow Rate 0 Oxygen Delivery Method Room Air Oxygen Flow Rate 0 Narrative Exam Narrative: Disheveled male but very pleasant, no acute distress. Heart rate and rhythm regular no murmurs Lungs CTA b/l Abdomen is S NT ND Extremities have extensive scarring of the skin on distal portions of all 4 extremities patient attributes this to IV heroin use remotely There is peeling and recent healed wounds of both hands bilaterally, also a healing L hallux wound without erythema. Right lower extremity nothing acute left lower extremity has significant swelling erythema and heat He is alert and oriented cranial nerves intact neurologic exam is nonfocal Objective Labs 08/18/24 06:32 08/18/24 06:32 Labs: Laboratory Results - last 24 hr 08/18/24 06:32 WBC 8.9 RBC 4.33 L Hgb 11.8 L Hct 35.6 L MCV 82.1 MCH 27.2 MCHC 33.2 RDW 15.2 H Plt Count 219 Neut % (Auto) 76.0 H Lymph % (Auto) 13.8 L [place] % (Auto) 7.5 Eos % (Auto) 2.1 Baso % (Auto) 0.6 Neut # (Auto) 6800 Lymph # (Auto) 1200 [place] # (Auto) 700 Eos # (Auto) 200 Baso # (Auto) 100 Sodium 135 L Potassium 3.6 Chloride 103 Carbon Dioxide 28 BUN 12 Creatinine 0.55 L Estimated GFR > 60 BUN/Creatinine Ratio 21.8 Glucose 105 H Calcium 8.3 L Total Bilirubin 0.4 AST 18 ALT 14 Alkaline Phosphatase 77 Total Protein 7.0 Albumin 3.1 L Globulin 3.9 Albumin/Globulin Ratio 0.8 L Vancomycin Trough 9.3 L PFSH Social History household members: friend(s) Smoking Status: Current every day smoker Assessment & Plan Assessment & Plan narrative: Assessment and plan: Cellulitis of left lower extremity, acute, present on admission * Blood cultures without growth thus far. Continue intravenous vancomycin and high-dose ceftriaxone today given clinical improvement thus far. * Patient has been controlled at rest with methadone thus far, reluctant to take opiates otherwise but continues to have pain with ambulation. * No leukocytosis today, stable chemistries. Opiate use disorder on methadone - supposed to increase to 60 mg methadone today, then 70 mg next. Increased methadone to 70 mg daily today. - continue other opiates as needed for pain control DVT prophylaxis * Subcutaneous heparin Code status: * Full code Time-Based Coding :: [TOTAL MINUTES] spent with patient and on the chart (including review of chart, obtaining history, exam, reviewing outside data, placing orders, documenting exam and treatment plan, and counseling patient) on [DATE]. Quality VTE Deep Vein Thrombosis/Pulmonary Embolism Present on Admission: No
--- NOTE | 2024-08-18 13:45 | CM.DPC ---
DCP COnt: Per MD, pt improving slowly and has been independent in his room and anticipates another 1-2 days before stable for discharge home. YELITZA Rose
[2024-08-18 16:00] VITALS: BP 110/67; PULSE 74; RESP 17; TEMP 36.5; O2SAT 97
[2024-08-18 21:11] VITALS: BP 114/77; PULSE 79; RESP 18; TEMP 36.1; O2SAT 95
[2024-08-19 09:00] VITALS: BP 107/76; PULSE 73; RESP 15; TEMP 36.3; O2SAT 96
[2024-08-19] MEDS: HEPARIN 5,000 UNIT/ML VIAL 5000 UNIT SUBCUT ×2 (10:00→20:11)
[2024-08-19] MEDS: METHADONE INTENSOL 10 MG/ML ORAL.CONC 70 MG PO (10:20)
[2024-08-19] MEDS: FUROSEMIDE 40 MG/4 ML VIAL IV (10:40)
[2024-08-19] MEDS: VANCOMYCIN 1,250 MG/250 ML PIGGYBACK 250 MG IV ×2 (10:46→20:00)
[2024-08-19] MEDS: SODIUM CHLORIDE 0.9% FLUSH 10 ML IV ×2 (10:46→20:12)
--- NOTE | 2024-08-19 11:18 | PM.PN.IH.1 ---
Subjective Subjective Date Patient Seen: 08/19/24 Time Patient Seen: 08:30 Interval history: 49 year old male admitted with left leg cellulitis. He reports persistent left leg swelling and pain at rest and with ambulation. Exam Vital Signs (past 8 hours): - 08/19/24 09:00 Temperature 97.3 F L Pulse Rate 73 Respiratory Rate 15 Blood Pressure 107/76 Pulse Oximetry 96 Oxygen Flow Rate 0 Oxygen Delivery Method Room Air Oxygen Flow Rate 0 Narrative Exam Narrative: Disheveled male but very pleasant, no acute distress. Heart rate and rhythm regular no murmurs Lungs CTA b/l Abdomen is S NT ND Extremities have extensive scarring of the skin on distal portions of all 4 extremities patient attributes this to IV heroin use remotely There is peeling and recent healed wounds of both hands bilaterally, also a healing L hallux wound without erythema. Right lower extremity without evema, left lower extremity with significant swelling erythema and warmth He is alert and oriented cranial nerves intact neurologic exam is nonfocal Objective Labs 08/18/24 06:32 08/18/24 06:32 [facility] Social History household members: friend(s) Smoking Status: Current every day smoker Assessment & Plan Assessment & Plan narrative: 1. Cellulitis of left lower extremity, acute, present on admission Blood cultures shows no growth to date. Continue intravenous vancomycin and high-dose ceftriaxone today given clinical improvement. Patient has been controlled at rest with methadone thus far, reluctant to take opiates otherwise but continues to have pain with ambulation. No leukocytosis today, stable chemistries. 2. Left leg edema due to infection and venous insufficiency. Elevate leg Diurese x 1 dose today 40mg IV x 1 3. Opiate use disorder on methadone Increased methadone to 70 mg daily on 08/19 per outside protocol ([place]gwalic). continue other opiates as needed for pain control DVT prophylaxis Subcutaneous heparin Code status: Full code Quality VTE Deep Vein Thrombosis/Pulmonary Embolism Present on Admission: No [employer] Administrative Assistant Document charge(s): No Charge Codes Subsequent inpatient/observation care: [id number]
[2024-08-19 17:47] VITALS: BP 106/70; PULSE 75; RESP 13; TEMP 36.4; O2SAT 95
[2024-08-20 01:00] VITALS: BP 136/72; PULSE 90; RESP 16; TEMP 37.1; O2SAT 98
[2024-08-20] MEDS: VANCOMYCIN 1,250 MG/250 ML PIGGYBACK 250 MG IV ×3 (02:55→18:52)
[2024-08-20 05:33] VITALS: BP 104/61; PULSE 67; RESP 18; TEMP 36.3; O2SAT 94
[2024-08-20 05:49] LABS: Alanine Aminotransferase 13 IU/L (<50); Albumin 3.2 g/dL (3.5-5.0); Albumin Globulin Ratio 0.8 (1.0-2.8); Alkaline Phosphatase 75 U/L (38-126); Aspartate Aminotransferase 19 IU/L (17-59); BUN Creatinine Ratio 23.5 (6-22); Bilirubin Total 0.2 mg/dL (0.2-1.3); Blood Urea Nitrogen 16 mg/dL (9-20); Calcium 8.6 mg/dL (8.4-10.2); Carbon Dioxide 32 mmol/L (22-32); Chloride 102 mmol/L (98-107); Estimated Glomerular Filt Rate > 60 mL/min (>60); Globulin 4.2 g/dL (1.7-4.1); Glucose 106 mg/dL (70-99); HEMOLYSIS < 15 (0-50); Potassium 4.3 mmol/L (3.4-5.1); Sodium 137 mmol/L (137-145); Total Protein 7.4 g/dL (6.3-8.2)
[2024-08-20 05:53] LABS: Add Manual Diff / Slide Review NO; Basophils Absolute Auto 100 /uL (0-100); Basophils Percent Auto 1.1 % (0-2); Eosinophils Absolute Auto 200 /uL (0-450); Eosinophils Percent Auto 2.9 % (2-4); Hematocrit 35.7 % (41-53); Hemoglobin 11.7 g/dL (13.5-17.5); Lymphocytes Absolute Auto 1400 /uL (1100-4500); Lymphocytes Percent Auto 17.1 % (25-40); Mean Corpuscular HGB Conc 32.7 % (30-36); Mean Corpuscular Hemoglobin 26.9 PG (26-34); Mean Corpuscular Volume 82.4 fL (80-100); Monocytes Absolute Auto 700 /uL (0-900); Monocytes Percent Auto 8.6 % (3-14); Neutrophils Absolute Auto 5900 /uL (1500-7000); Neutrophils Percent Auto 70.3 % (50-75); Platelet Count 298 X10^3/uL (150-400); Red Blood Cell Count 4.34 X10^6/uL (4.5-5.9); Red Cell Distribution Width 14.7 % (11.6-14.8); White Blood Cell Count 8.4 X10^3/uL (4.5-11.0)
[2024-08-20 08:00] VITALS: BP 110/65; PULSE 69; RESP 15; TEMP 36.2; O2SAT 94
[2024-08-20] MEDS: SODIUM CHLORIDE 0.9% FLUSH 10 ML IV ×2 (09:31→20:51)
[2024-08-20] MEDS: HEPARIN 5,000 UNIT/ML VIAL 5000 UNIT SUBCUT ×2 (09:31→20:51)
[2024-08-20] MEDS: METHADONE INTENSOL 10 MG/ML ORAL.CONC 80 MG PO (09:49)
[2024-08-20 11:04] LABS: Vancomycin Trough 15.1 ug/mL (10-20)
[2024-08-20] MEDS: VANCOMYCIN TROUGH 1 REQUEST MISC (11:15)
[2024-08-20] MEDS: cefTRIAXone 2,000 MG in SODIUM CHLORIDE 0.9% 100 ML 200 MG IV (13:02)
--- NOTE | 2024-08-20 14:59 | CM.DPNOTE ---
DCP Cont Reviewed chart. Patient discussed in multidisciplinary rounds. Dr Ortiz to assess for medical readiness today, potential for discharge. Plan remains discharge home w/roommates. Alert TCM group that patient needs to establish with new provider; encourage patient to connect with [facility] to schedule his appt. Social work team following clinical course closely in case any discharge needs or concerns arise. [place]
[2024-08-20 16:00] VITALS: BP 103/62; PULSE 62; RESP 16; TEMP 35.9; O2SAT 95
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
--- NOTE | 2024-08-20 19:06 | PC.NURSE ---
Patient's friend just brought in patient's upper and lower dentures, patient placed them on bedside table in denture cup to clean.
[2024-08-20 20:12] LABS: MRSA (Nasal) PCR DETECTED (Not Detect)
[2024-08-21] VITALS: BP 103/62; PULSE 76; RESP 16; TEMP 36.3; O2SAT 93
[2024-08-21] MEDS: VANCOMYCIN 1,250 MG/250 ML PIGGYBACK 250 MG IV ×3 (02:46→20:07)
[2024-08-21 08:00] VITALS: BP 106/68; PULSE 71; RESP 16; TEMP 36.2; O2SAT 94
[2024-08-21] MEDS: HEPARIN 5,000 UNIT/ML VIAL 5000 UNIT SUBCUT ×2 (08:50→20:20)
[2024-08-21] MEDS: SODIUM CHLORIDE 0.9% FLUSH 10 ML IV ×2 (08:51→20:20)
[2024-08-21] MEDS: METHADONE INTENSOL 10 MG/ML ORAL.CONC 90 MG PO (09:19)
--- NOTE | 2024-08-21 11:16 | CM.DPC ---
DCP Cont: Per MD, pt remains on IV abx and slowly improving but not yet stable for d/c yet today and continue to follow titration of methadone per providers at [facility]. Likely another 1-2 days before stable for d/c. SW to notify TCM team at d/c for request of helping pt to establish with PCP after discharge. Mari Kang MSW
--- NOTE | 2024-08-21 13:30 | PM.PN.1 ---
Subjective Subjective Interval history: 49-year-old male with opioid use disorder recently initiated on methadone maintenance program, remote IV drug use who was admitted with bilateral hand wounds and left lower extremity cellulitis. He reports that he is continuing to improve overall. He has decreasing redness to his foot and ankle. He did sleep for a few hours last night. With regard to his methadone maintenance program, he notes he was recently initiated on treatment. He is supposed to increase the methadone by 10 mg each day. He reports he is to follow-up at the clinic once he is discharged from the hospital. He previously was in methadone maintenance and states he needed approximately 160 mg daily to control his symptoms. He is currently on 90 mg daily with the dose increased yesterday. Exam Vital Signs (past 8 hours): - 08/21/24 08:00 Temperature 97.1 F L Pulse Rate 71 Respiratory Rate 16 Blood Pressure 106/68 Pulse Oximetry 94 Oxygen Flow Rate 0 Oxygen Delivery Method Room Air Oxygen Flow Rate 0 Narrative Exam Narrative: GEN: Middle-aged male, Alert and oriented x 3, NAD HEENT:NC, Face symmetric CHEST: Respiratory excursions symmetric, CTAB CV: RRR, no M/R/G ABD: Soft, NT/ND, BT present in all 4 quadrants, no organomegaly or masses EXTR: warm, well perfused, no C/C, multiple scabs to the bilateral hands and legs, left leg with erythema and swelling over the medial ankle, no pain with dorsiflexion or plantar flexion of the ankle. Mild (decreased from moderate) swelling noted of the medial ankle region. Area is warm to touch and erythematous (decreased c/w yesterday). Multiple scars noted to the lower legs bilaterally SKIN: warm and dry, no rash NEURO: Alert and oriented x 3, nonfocal Objective Labs 08/20/24 05:18 08/20/24 05:18 Labs: Laboratory Results - last 24 hr 08/20/24 18:57 Nasal Screen MRSA (PCR) Detected [facility] Social History household members: friend(s) Smoking Status: Current every day smoker Assessment & Plan Assessment & Plan narrative: 1. Left lower extremity cellulitis Continues on IV ceftriaxone and vancomycin. Nasal MRSA screen was positive. We will continue elevating the leg as much as possible when in bed. He is afebrile. Cellulitis continues to improve. 2. Left leg edema secondary to venous insufficiency and cellulitis He did receive IV Lasix on 08/19/2024. Swelling continues to improve. No indication for diuretics today. 3. Opioid use disorder on methadone maintenance We will increase to 100 mg of methadone tomorrow, plan to increase to 110 mg for Thursday if he remains hospitalized. Code status Full Prophylaxis On heparin. Disposition Discharge once medically stable Time-Based Coding :: [TOTAL MINUTES] spent with patient and on the chart (including review of chart, obtaining history, exam, reviewing outside data, placing orders, documenting exam and treatment plan, and counseling patient) on [DATE]. Quality VTE Deep Vein Thrombosis/Pulmonary Embolism Present on Admission: No
[2024-08-21] MEDS: cefTRIAXone 2,000 MG in SODIUM CHLORIDE 0.9% 100 ML 200 MG IV (13:50)
[2024-08-21] MEDS: METHADONE INTENSOL 10 MG/ML ORAL.CONC PO (15:48)
[2024-08-21 16:00] VITALS: BP 102/68; PULSE 62; RESP 14; TEMP 35.7; O2SAT 96
[2024-08-21 19:00] VITALS: BP 104/62; PULSE 72; RESP 20; TEMP 35.7; O2SAT 93
--- NOTE | 2024-08-22 | DI.CT.S_ITS ---
PROCEDURE: CT LE LT W CON INDICATIONS: LEFT ANKLE INFECTION TECHNIQUE: After the administration of intravenous contrast, 3 mm axial sections acquired of the left ankle, with coronal and sagittal reformats. For radiation dose reduction, the following was used: automated exposure control, adjustment of mA and/or kV according to patient size. COMPARISON: None. FINDINGS: Image quality: Excellent. Bones: Postsurgical changes are seen from prior distal fibular fracture fixation with a lateral plate and screw construct and additional interfragmentary screw. Hardware appears to be intact. A transsyndesmotic screws present and appears intact. Fracture appears healed. Mortise joint is normally aligned. No osteochondral lesion in the talar dome. No focal osseous erosion is seen. Significant degenerative changes are partially included in the contralateral right ankle. Soft tissues: Mild subcutaneous edema the distal lower leg and ankle. No focal skin ulceration identified given mild streak artifact. No focal peripherally enhancing fluid collection is seen. No soft tissue gas. No intermuscular fascial edema. No significant tibiotalar effusion. IMPRESSION: 1. Nonspecific subcutaneous edema surrounding the ankle. No abscess. No soft tissue gas. No signs of fasciitis or osteomyelitis. 2. Postsurgical changes at the distal fibula. Metal hardware appears intact. Approved by: Devan Ray M.D. on 08/22/2024 at 11:35
[2024-08-22 03:00] VITALS: BP 94/57; PULSE 57; RESP 18; TEMP 35.8; O2SAT 92
[2024-08-22] MEDS: VANCOMYCIN 1,250 MG/250 ML PIGGYBACK 250 MG IV ×2 (03:14→11:41)
[2024-08-22 08:00] VITALS: BP 95/62; PULSE 57; RESP 15; TEMP 35.9; O2SAT 96
[2024-08-22] MEDS: SODIUM CHLORIDE 0.9% FLUSH 10 ML IV (08:42)
[2024-08-22] MEDS: HEPARIN 5,000 UNIT/ML VIAL 5000 UNIT SUBCUT (08:42)
[2024-08-22 11:25] LABS: Vancomycin Trough 19.6 ug/mL (10-20)
[2024-08-22] MEDS: METHADONE INTENSOL 10 MG/ML ORAL.CONC 90 MG PO (11:41)
--- NOTE | 2024-08-22 12:47 | CM.DPNOTE ---
DCP note ARCHITECTURE ANALYST reviewed EMR per provider in morning rounds, pt may dc later today pending cat scan results of left ankle. maybe tomorrow? ARCHITECTURE ANALYST met with pt in room. confirmed ambulating in room indep but something feels wrong with left ankle still. agrees to return home at [place] if scan shows nothing requiring acte care stay. agrees to call PCP group to schedule new SOC appt. has a ride home today. P: dc today vs tomorrow pending scan. transport home with friend. denies other DCP/CM needs. will continue to follow as needed for DCP coordination YELITZA Kelly
[2024-08-22] MEDS: cefTRIAXone 2,000 MG in SODIUM CHLORIDE 0.9% 100 ML 200 MG IV (14:07)
--- NOTE | 2024-08-22 14:35 | PM.DS.1 ---
History of Present Illness History of Present Illness Date Patient Seen: 08/22/24 Chief complaint: staph infection in Lt leg- pain Narrative: Per admitting provider: Chief complaint: Fevers chills fatigue malaise diminished appetite redness and swelling of left lower leg secondary to cellulitis History of present illness: 08/16: 49-year-old male 2 weeks ago got sores on his both hands after cleaning out friend's car who had been living in it he did not seek treatment for infections of his hands. About 5 days ago he started developing redness and swelling of his left lower leg with a fever or chills malaise fatigue diminished appetite. He came to the emergency department 08/16 for evaluation Findings in the emergency department significant for white blood cell count of 10.8 with 81% neutrophils sodium 135 potassium 3.2 BUN 29 creatinine 1.2 procalcitonin 0.144 Doppler ultrasound negative for DVT of the affected extremity. He has a remote but longstanding an extensive past history of heroin IV use and previous skin infections He is on maintenance methadone He works as a webb Discharge Providers Provider Date of admission: 08/16/24 17:40 Discharge Date: 08/22/24 Discharge provider: Dave Moran DO Summary Hospital Course Discharge Diagnosis: 1. Left lower extremity cellulitis 2. Left leg edema secondary to venous insufficiency and cellulitis 3. Opioid use disorder on methadone maintenance Hospital Course: This is a 49-year-old male with a past medical history of opiate use disorder who was admitted with a left lower extremity cellulitis in the setting of chronic venous insufficiency. He had slow improvement with ceftriaxone and vancomycin, and ultimately had near resolution of his rash and pain though he did have this localized to a spot on his ankle. Given continued pain in the area a CT scan was performed which showed no localizing abscess or fluid collection. The patient was ambulating without assistance, and with improvement in his cellulitis recommended for discharge home. He will continue on another 5 days of cephalexin and doxycycline given his improvement with the antibiotics here in the hospital and a positive MRSA swab. He will follow up in the methadone clinic for continued management of opiate use disorder. Time Spent with Patient Time spent: Greater than 30 minutes Exam Vital Signs (past 8 hours): - 08/22/24 08:00 Temperature 96.6 F L Pulse Rate 57 L Respiratory Rate 15 Blood Pressure 95/62 Pulse Oximetry 96 Oxygen Flow Rate 0 Oxygen Delivery Method Room Air Oxygen Flow Rate 0 Narrative Exam Narrative: GEN: Middle-aged male, Alert and oriented x 3, NAD HEENT:NC, Face symmetric CHEST: Respiratory excursions symmetric, CTAB CV: RRR, no M/R/G ABD: Soft, NT/ND, BT present in all 4 quadrants, no organomegaly or masses EXTR: warm, well perfused,improved erythema localized now to lateral ankle area on the L. Mildly tender. SKIN: warm and dry, no rash NEURO: Alert and oriented x 3, nonfocal Objective Labs 08/20/24 05:18 08/20/24 05:18 Labs: Laboratory Results - last 24 hr 08/22/24 10:30 Vancomycin Trough 19.6 PFSH Social History household members: friend(s) Smoking Status: Current every day smoker Discharge Plan Discharge Plan Patient Disposition: Home Provider Discharge Comment: You were admitted to the hospital with a left leg cellulitis, improved with antibiotics, complete another 5 days of therapy at home. Follow up with methadone clinic tomorrow for continued dosing. Discharge orders & Medications Prescriptions: New cephalexin 500 mg capsule 500 mg PO QID 5 Days Qty: 20 0RF doxycycline hyclate 100 mg tablet 100 mg PO BID 5 Days Qty: 10 0RF Continued methadone 60 mg PO DAILY Patient Comments: started at the Methadone clinic today (08/16) [place] Discharge Health Status Multidrug resistant organism: MRSA Diet/Activity/Treatments Diet: Diet as Tolerated and Regular Activity: As tolerated, no restrictions. Visit Report/Discharge Packet Stand Alone Forms: Patient Portal/API, Stroke Signs & Symptoms Quality VTE Deep Vein Thrombosis/Pulmonary Embolism Present on Admission: No
--- NOTE | 2024-08-22 16:14 | DIET.CONS ---
Dietary Consultation Note Admission Date: 08/16/2024 17:40 Assessment: Pt admitted for cellulitis. Dietitian screened for LOS. Met with pt at bedside. Reports great appetite. Before admission to hospital reports more inconsistent meals/PO intakes r/t social/environmental factors (no housing) for about 6 months. Lost 20-30 lb in that time. Nutrition focused physical exam performed with no significant findings Ht: 175.26 cm Wt: 80.6 kg BMI: 26.6 UBW: 200-210 lb per pt, no chart weights (90.9-95.45 kg) (-11-15.5% weight loss within 6 months, severe) Last BM: 08/15/24 (08/16/24 20:15) MNA: 12 Luis Score: 20 Diet: 08/16/24 Dinner General (Regular) Diet Diet Modifications: Nutrition Percent Meal Consumed 100% 08/21/24 18:00 Percent Meal Consumed 100% 08/20/24 17:51 Labs: RBC 4.34 X10^6/uL (4.5-5.9) L 08/20/24 05:18 Hgb 11.7 g/dL (13.5-17.5) L 08/20/24 05:18 Hct 35.7 % (41-53) L 08/20/24 05:18 Creatinine 0.68 mg/dL (0.66-1.25) 08/20/24 05:18 Lactate 1.8 mmol/L (0.7-2.1) 08/16/24 15:50 Nutrition Diagnosis: Unintentional weight loss r/t social/environmental factors aeb -11 to 15% weight loss in 6 months, severe Interventions: -Encouraged continued good PO intakes Monitoring/Evaluations: pt to d/c Electronically Signed by: Alisson Shipley 08/22/24 16:14 Clinical Dietitian [address] [id number]
--- NOTE | 2024-08-22 18:07 | PC.NURSE ---
Discharge Note Patient A&O, VSS, RA, no complaints of pain. Patient agreeable to discharge plan. Discharge packet reviewed with patient, all questions/concerns addressed. Midline discontinued. Patient able to dress self and pack all belongings. Patient taken down to POV via wheelchair.
== END 2024-08-22 15:30 | disposition home or self-care (01) | DRG 383 ==
LOC: ED 16:28 → AC 17:55
PROVIDERS: Family Medicine; Internal Medicine; Admitting Provider Internal Medicine; Emergency Provider Emergency Medicine; Referring Provider Emergency Medicine; Visit Provider Internal Medicine
DX: L03.116 Cellulitis of left lower limb (principal); F17.200 Nicotine dependence, unspecified, uncomplicated; F11.90 Opioid use, unspecified, uncomplicated; R60.0 Localized edema; I87.2 Venous insufficiency (chronic) (peripheral); B95.62 Methicillin resistant Staphylococcus aureus infection as the cause of diseases classified elsewhere
CPT/HCPCS: 36415; 36592; 71045; 73701; 80053; 80202; 83605; 83690; 84145; 85025; 85610; 85730; 87040; 87797; 93005; 93010; 93971; 96365; 96367; 99284; J0696; J1642; J1644; J1938